=== PATIENT | male | born 2000 | race Caucasian/White ===

== ENCOUNTER 2022-10-26 08:10 | Emergency (ER) | payer OTHER, SELFPAY ==
[2022-10-26 08:32] VITALS: BP 143/54; PULSE 97; RESP 16; TEMP 36.8; O2SAT 98
--- NOTE | 2022-10-26 08:51 | ED.URI ---
HPI - URI/Sore Throat General Chief Complaint: Upper Respiratory Infection Stated Complaint: sorethroat Time Seen by Provider: 10/26/22 08:42 Source: patient and RN notes reviewed Mode of arrival: ambulatory Limitations: no limitations History of Present Illness HPI Narrative: Patient presents today complaining of a 3 day history of sore throat, mouth pain, postnasal drip. Believes he may have thrush. Denies cough, fever, congestion, rhinorrhea, or any additional symptoms. Currently rates his pain 8/10 and has been using Elif-[place] Plus, ibuprofen, and Tylenol. Reports ibuprofen helps more than anything else. Denies any known sick contacts. Patient is a nurse in the ICU. He uses Breo and Flovent for his asthma. Related Data Home Medications Medication Instructions Recorded Confirmed famotidine 20 mg tablet (Pepcid) 20 mg PO DAILY 10/26/22 10/26/22 fluticasone furoate 100 2 inh inhalation DAILY 10/26/22 10/26/22 mcg-vilanterol 25 mcg/dose inhalation powder (Breo Ellipta) fluticasone propionate 220 2 inh inhalation BID 10/26/22 10/26/22 mcg/actuation HFA aerosol inhaler (Flovent HFA) hyoscyamine sulfate 0.375 mg 0.375 mg PO BID 10/26/22 10/26/22 tablet,extended release,12 hr levothyroxine 125 mcg tablet 125 mcg PO DAILY 10/26/22 10/26/22 Allergies Allergy/AdvReac Type Severity Reaction Status Date / Time Penicillins Allergy Unknown Verified 10/26/22 08:35 Review of Systems Review of Systems: CONSTITUTIONAL: Denies body aches, fever, chills, or sweats. EYES: Denies visual changes, redness, or discharge. ENT: Denies rhinorrhea, congestion, or otalgia.+ sore throat, postnasal drip CARDIOVASCULAR: Denies chest pain, palpitations, or edema. RESPIRATORY: Denies cough or dyspnea. GASTROINTESTINAL: Denies abdominal pain, nausea, vomiting, or diarrhea. GENITOURINARY: Denies dysuria or hematuria. SKIN: Denies rash, itching, or wounds. MUSCULOSKELETAL: Denies back pain, joint pain, or myalgia. NEUROLOGIC: Denies headache, numbness, tingling, or weakness. PSYCH: Denies depression or anxiety. PMFSH Past Medical History Medical History (Updated 10/26/22 @ 09:02 by Shruti Zelaya, [employer], ) Asthma Comments At time of signature, I have reviewed and agree with nursing past medical, surgical, social and family history unless otherwise noted. Please see nursing chart for further information. There is no relevant family history pertinent to the presenting complaint Exam Narrative: GENERAL: Well-appearing, well-nourished, and in no acute distress. HEAD: Normocephalic, atraumatic. EYES: EOMI. No redness or drainage. Conjunctivae normal. ENT: Mucous membranes pink and moist. Nares clear. No rhinorrhea. TMs normal bilaterally. Throat erythematous. Tongue is erythematous with white patches. Uvula midline. NECK: Normal AROM. Supple. No lymphadenopathy. CHEST: No respiratory distress. Clear to auscultation. HEART: Regular rate and rhythm. No murmur appreciated. Normal peripheral pulses. EXTREMITIES: Normal range of motion. No edema. SKIN: Warm, dry, no rash. Capillary refill normal. Normal skin turgor. NEURO: No focal deficits. Alert and oriented x3. Gait steady. PSYCH: Normal affect. No signs of depression or anxiety. Course Course Level of Care: Express Care Visit Vital Signs Vital signs: Vital Signs Temperature 98.2 F 10/26/22 08:32 Pulse Rate 97 10/26/22 08:32 Respiratory Rate 16 10/26/22 08:32 Blood Pressure 143/54 H 10/26/22 08:32 Pulse Oximetry 98 10/26/22 08:32 Oxygen Delivery Room Air 10/26/22 08:32 Temperature 98.2 F 10/26/22 08:32 Pulse Rate 97 10/26/22 08:32 Respiratory Rate 16 10/26/22 08:32 Blood Pressure 143/54 H 10/26/22 08:32 Pulse Oximetry 98 10/26/22 08:32 Oxygen Delivery Room Air 10/26/22 08:32 Reviewed. Pt has been instructed to follow up with his PCP regarding his elevated blood pressure today. MDM - URI/Sore
== END 2022-10-26 09:10 | disposition home or self-care (01) ==
PROVIDERS: Emergency Provider Nurse Practitioner; PCP Hospitalist
DX: B37.0 Candidal stomatitis (principal); J45.909 Unspecified asthma, uncomplicated
CPT/HCPCS: 87081; 87880; 99203; G0463